=== PATIENT | female | born 1985 | race Caucasian/White ===

== ENCOUNTER 2017-01-30 18:09 | Emergency (ER) | payer OTHER ==
[~2017-01-30] VITALS: Ht 157.5 cm; Wt 76.2 kg
--- NOTE | 2017-01-30 18:27 | NUR ---
SELF PRESENT TO ED DT LOWER ABDOMINAL PAIN, CRAMPS LIKE, 10/10 X 2 DAYS. PATIENT IS AAO4. APPEARS IN NO APPARENT DISTRESS. DENIES NAUSEA AND VOMITTING. AFEBRILE. PT WITH HX OF FIBROID
[2017-01-30 18:57] LABS: APPEARANCE,URINE Slightly Cloudy (CLEAR); BILIRUBIN,URINE SMALL (NEGATIVE); BLOOD, URINE Large Ery/uL (NEGATIVE); COLOR,URINE Dark (YELLOW); KETONES,URINE 15 (NEGATIVE); LEUKOCYTE ESTERASE ,URINE Negative (NEGATIVE); NITRITE, URINE Negative (NEGATIVE); PH,URINE 5.5 (5.0-8.0); PROTEIN,URINE 100 mg/dl (NEGATIVE); UGLUCOSE Negative (NEGATIVE); UROBILINOGEN,URINE 0.2 EU/dL (0.2)
[2017-01-30 18:59] LABS: PREGNANCY TEST URINE QUAL NEGATIVE (NEGATIVE)
[2017-01-30] MEDS ORDERED: ONDANSETRON HCL/PF 4 MG/2 ML VIAL ONE (18:59)
[2017-01-30] MEDS ORDERED: KETOROLAC TROMETHAMINE INJ 30 MG/ML VIAL ONE (18:59)
[2017-01-30] MEDS ORDERED: MORPHINE SULFATE INJ 4 MG/ML DISP.SYRIN ONE (19:00)
[2017-01-30 19:06] LABS: BACTERIA,URINE Rare /HPF (None Seen); MUCUS,URINE Few /LPF (None Seen); RBC,URINE TOO NUMEROUS TO COUN /HPF (0-2); SQUAMOUS EPITHELIAL CELL,UR Moderate /HPF (None Seen); WBC,URINE 0-2 /HPF (0-3)
[2017-01-30] MEDS: ONDANSETRON HCL/PF 4 MG/2 ML VIAL IVP ONE (19:10)
[2017-01-30] MEDS: KETOROLAC TROMETHAMINE INJ 30 MG/ML VIAL IV ONE (19:10)
[2017-01-30] MEDS: MORPHINE SULFATE INJ 2 MG/ML DISP.SYRIN IV ONE (19:10)
[2017-01-30 19:15] LABS: BASOPHILS # (AUTO) 0.1 /CMM (0.0-0.2); BASOPHILS % (AUTO) 0.8 % (0.0-2.0); EOSINOPHILS # (AUTO) 0.1 /CMM (0.0-0.7); EOSINOPHILS % (AUTO) 1.1 % (0.0-6.0); HEMATOCRIT 30 % (33-45); HEMOGLOBIN 8.9 g/dL (11.5-14.8); LYMPHOCYTES # (AUTO) 1.6 /CMM (0.8-4.8); LYMPHOCYTES % (AUTO) 12.1 % (20.0-44.0); MEAN CORPUSCULAR HEMOGLOBIN 20 PG (26.0-33.0); MEAN CORPUSCULAR HGB CONC 30 g/dl (31.0-36.0); MEAN CORPUSCULAR VOLUME 67 fL (82-100); MONOCYTES # (AUTO) 0.8 /CMM (0.1-1.30); MONOCYTES % (AUTO) 6.4 % (2.0-12.0); NEUTROPHILS # (AUTO) 10.4 /CMM (1.8-8.9); NEUTROPHILS % (AUTO) 79.6 % (43.0-81.0); PLATELET COUNT (AUTO) 428 /CMM (150-450); RDW COEFFICIENT OF VARIATION 17.5 (11.5-15.0)
[2017-01-30] MEDS ORDERED: HYDROMORPHONE 1 MG/1 ML DISP.SYRIN ONE (19:24)
[2017-01-30 19:26] LABS: CALCIUM, SERUM 8.8 mg/dL (8.5-10.1); CREATININE 0.9 mg/dL (0.6-1.3); POTASSIUM 3.8 mmol/L (3.5-5.1)
--- NOTE | 2017-01-30 19:29 | NUR ---
CONTINUITY OF CARE TRANSFERRED TO NURSE ED
[2017-01-30] MEDS: HYDROMORPHONE 1 MG/1 ML DISP.SYRIN IV ONE (19:31)
[2017-01-30 19:32] LABS: ALBUMIN 3.6 g/dL (3.4-5.0); BILIRUBIN,DIRECT 0.1 mg/dL (0.0-0.2); BILIRUBIN,TOTAL 0.2 mg/dL (0.2-1.0); TOTAL PROTEIN, SERUM 7.8 g/dL (6.4-8.2)
--- NOTE | 2017-01-30 19:51 | NUR ---
PELVIC RODRICK DONE.
--- NOTE | 2017-01-30 21:15 | NUR ---
IV removed. Catheter intact and site benign. Pressure and 4x4 applied to site. No bleeding noted. Patient discharged to home in stable condition. Written and verbal after care instructions given. Patient verbalizes understanding of instruction. ambulatory with a steady gait noted. pt aaox4 no acute distress noted, resp even and unlabored. advice pt not to drive or operate any machinery due to pt was given narcotic medicine. pt friend at bedside to take pt home.
[2017-01-30 21:17] VITALS: BP 133/64
== END 2017-01-30 21:17 | disposition home or self-care (01) ==
LOC: ER 18:12
DX: D21.9 Benign neoplasm of connective and other soft tissue, unspecified (principal); N94.6 Dysmenorrhea, unspecified; D25.1 Intramural leiomyoma of uterus; N83.209 Unspecified ovarian cyst, unspecified side; N93.8 Other specified abnormal uterine and vaginal bleeding; Z88.2 Allergy status to sulfonamides
CPT/HCPCS: 36415; 76856-TC; 80048-TC; 80076-TC; 81000-TC; 84703-TC; 85025-TC; A4606; J1170; J1885; J2270; J2405; Z7610

== ENCOUNTER 2017-03-14 04:07 | Emergency (ER) | payer OTHER ==
[~2017-03-14] VITALS: Ht 157.5 cm; Wt 73.9 kg
--- NOTE | 2017-03-14 04:24 | NUR ---
PT AMBULATORY TO ER BED 6, PT C/O LOWER ABD PAIN, CHRONIC; HX OF FIBROIDS. PT AOX3 RR EVEN AND UNLABORED. NO SOB NOTED. NAD NOTED. NO NVD AT THIS TIME. PT NOT DIAPHORETIC. DR. GARCIA AT BEDSIDE FOR EVAL.
[2017-03-14 04:53] LABS: BASOPHILS # (AUTO) 0.1 /CMM (0.0-0.2); EOSINOPHILS # (AUTO) 0.3 /CMM (0.0-0.7); HEMOGLOBIN 7.3 g/dL (11.5-14.8); LYMPHOCYTES # (AUTO) 2.8 /CMM (0.8-4.8); MONOCYTES # (AUTO) 0.7 /CMM (0.1-1.30)
--- NOTE | 2017-03-14 04:53 | NUR ---
URINE COLLECTED. 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
[2017-03-14 04:56] LABS: CALCIUM, SERUM 8.6 mg/dL (8.5-10.1); CREATININE 0.8 mg/dL (0.6-1.3); POTASSIUM 3.5 mmol/L (3.5-5.1)
[2017-03-14 05:01] LABS: ALBUMIN 3.1 g/dL (3.4-5.0); BILIRUBIN,TOTAL 0.1 mg/dL (0.2-1.0); TOTAL PROTEIN, SERUM 7.5 g/dL (6.4-8.2)
[2017-03-14 05:02] LABS: BASOPHILS % (AUTO) 0.9 % (0.0-2.0); EOSINOPHILS % (AUTO) 2.9 % (0.0-6.0); HEMATOCRIT 25 % (33-45); LYMPHOCYTES % (AUTO) 31.9 % (20.0-44.0); MEAN CORPUSCULAR HEMOGLOBIN 19 PG (26.0-33.0); MEAN CORPUSCULAR HGB CONC 29 g/dl (31.0-36.0); MEAN CORPUSCULAR VOLUME 64 fL (82-100); MONOCYTES % (AUTO) 7.9 % (2.0-12.0); NEUTROPHILS % (AUTO) 56.4 % (43.0-81.0); PLATELET COUNT (AUTO) 496 /CMM (150-450); RDW COEFFICIENT OF VARIATION 18.5 (11.5-15.0); RED BLOOD CELL COUNT(AUTO) 3.89 MIL/uL (4.0-5.2); WHITE BLOOD COUNT (AUTO) 8.8 K/uL (4.3-11.0)
[2017-03-14 05:10] LABS: APPEARANCE,URINE SL CLOUDY (CLEAR); BILIRUBIN,URINE NEGATIVE (NEGATIVE); BLOOD, URINE 3+ Ery/uL (NEGATIVE); COLOR,URINE YELLOW (YELLOW); KETONES,URINE NEGATIVE (NEGATIVE); LEUKOCYTE ESTERASE ,URINE NEGATIVE (NEGATIVE); NITRITE, URINE NEGATIVE (NEGATIVE); PROTEIN,URINE 2+ mg/dl (NEGATIVE); UGLUCOSE NEGATIVE (NEGATIVE); UROBILINOGEN,URINE 0.2 EU/dL (0.2)
[2017-03-14 05:14] LABS: BACTERIA,URINE None seen /HPF (None Seen); PREGNANCY TEST URINE QUAL NEGATIVE (NEGATIVE); RBC,URINE 81-100 /HPF (0-2); SQUAMOUS EPITHELIAL CELL,UR Few /HPF (None Seen)
--- NOTE | 2017-03-14 05:16 | NUR ---
DR. GARCIA AT BEDSIDE SPEAKING TO PT REGARDING RESULTS
[2017-03-14 05:27] LABS: EOSINOPHILS % (MANUAL) 2 % (0-4); LYMPHOCYTES % (MANUAL) 29 % (16-48); MONOCYTES % (MANUAL) 7 % (0-11.0); NEUTROPHILS % (MANUAL) 62 (42-76)
--- NOTE | 2017-03-14 05:27 | NUR ---
IV removed. Catheter intact and site benign. Pressure and 4x4 applied to site. No bleeding noted. Patient discharged to home in stable condition. Written and verbal after care instructions given. Patient verbalizes understanding of instruction ambulatory with a steady gait. instructed not to drive. pt verbalize understanding.
[2017-03-14 05:28] VITALS: BP 120/56
== END 2017-03-14 05:29 | disposition home or self-care (01) ==
LOC: ER 04:09
DX: D25.9 Leiomyoma of uterus, unspecified (principal); N93.8 Other specified abnormal uterine and vaginal bleeding; D64.9 Anemia, unspecified
CPT/HCPCS: 36415; 80048-TC; 80076-TC; 81000-TC; 83690-TC; 84703-TC; 85025-TC; A4606; J2270; J2405; J7030; Z7610

== ENCOUNTER 2017-03-23 00:28 | Emergency (ER) | payer OTHER ==
[~2017-03-23] VITALS: Ht 165.1 cm; Wt 119.3 kg
--- NOTE | 2017-03-23 00:40 | NUR ---
TO BED 7 A 31 YO FEMALE BB SELF C/O NAUSEA REPORTING , "PAIN MEDICATION FOR FIBROIDS WONT STAY DOWN." AAOX4, AMBULATORY, NAD NOTED, VSS, NONDIAPHORETIC. GOWNED. COMFORT MEASURES RENDERED.
--- NOTE | 2017-03-23 03:28 | NUR ---
Patient discharged to home in stable condition. Written and verbal after care instructions given. Patient verbalizes understanding of instruction. Patient is ambulatory with steady gait, instructed not to drive. No further complaints.
[2017-03-23 03:29] VITALS: BP 119/68
== END 2017-03-23 03:29 | disposition home or self-care (01) ==
LOC: ER 00:31
DX: D25.9 Leiomyoma of uterus, unspecified (principal); R11.10 Vomiting, unspecified; Z88.2 Allergy status to sulfonamides; Z88.8 Allergy status to other drugs, medicaments and biological substances
CPT/HCPCS: 96372; 99283; A4606; J2405; Z7610

== ENCOUNTER 2017-04-28 09:32 | Emergency (ER) | payer OTHER ==
[~2017-04-28] VITALS: Ht 152.4 cm; Wt 77.6 kg
--- NOTE | 2017-04-28 09:32 | NUR ---
LOWER ABD PAIN, BILATERAL THIGH PAIN X 3 AM H/O FIBROIDS
[2017-04-28] MEDS ORDERED: HYDROCODONE/APAP 5/325MG 1 EACH TABLET PO ONE (10:00)
[2017-04-28 10:06] LABS: BILIRUBIN,URINE Negative (NEGATIVE); BLOOD, URINE Moderate Ery/uL (NEGATIVE); COLOR,URINE Yellow (YELLOW); KETONES,URINE Trace (NEGATIVE); LEUKOCYTE ESTERASE ,URINE Negative (NEGATIVE); NITRITE, URINE Negative (NEGATIVE); PH,URINE 5.5 (5.0-8.0); PROTEIN,URINE 30 mg/dl (NEGATIVE); UGLUCOSE Negative (NEGATIVE); UROBILINOGEN,URINE 0.2 EU/dL (0.2)
[2017-04-28] MEDS ORDERED: HYDROCODONE/APAP 5/325MG 1 EACH TABLET ONE (10:07)
[2017-04-28 10:08] LABS: APPEARANCE,URINE Hazy (CLEAR)
[2017-04-28] MEDS ORDERED: ONDANSETRON 4 MG TAB.RAPDIS ONE (10:09)
[2017-04-28 10:13] LABS: BACTERIA,URINE None seen /HPF (None Seen); RBC,URINE 0-3 /HPF (0-2); SQUAMOUS EPITHELIAL CELL,UR Few /HPF (None Seen)
--- NOTE | 2017-04-28 10:13 | NUR ---
VERBAL ORDER FROM DR ENEDELIA HAAS 4 MG ODT SL X1
[2017-04-28 10:20] LABS: BASOPHILS % (AUTO) 0.5 % (0.0-2.0); EOSINOPHILS # (AUTO) 0.1 /CMM (0.0-0.7); EOSINOPHILS % (AUTO) 1.3 % (0.0-6.0); HEMATOCRIT 21 % (33-45); LYMPHOCYTES # (AUTO) 2.1 /CMM (0.8-4.8); LYMPHOCYTES % (AUTO) 21.7 % (20.0-44.0); MEAN CORPUSCULAR HEMOGLOBIN 18 PG (26.0-33.0); MEAN CORPUSCULAR HGB CONC 30 g/dl (31.0-36.0); MEAN CORPUSCULAR VOLUME 61 fL (82-100); MONOCYTES # (AUTO) 0.7 /CMM (0.1-1.30); MONOCYTES % (AUTO) 6.8 % (2.0-12.0); NEUTROPHILS # (AUTO) 6.9 /CMM (1.8-8.9); NEUTROPHILS % (AUTO) 69.7 % (43.0-81.0); PLATELET COUNT (AUTO) 445 /CMM (150-450); RDW COEFFICIENT OF VARIATION 17.2 (11.5-15.0); RED BLOOD CELL COUNT(AUTO) 3.41 MIL/uL (4.0-5.2); WHITE BLOOD COUNT (AUTO) 9.8 K/uL (4.3-11.0)
[2017-04-28 10:23] LABS: HEMOGLOBIN 6.3 g/dL (11.5-14.8)
[2017-04-28 10:26] LABS: CALCIUM, SERUM 8.8 mg/dL (8.5-10.1); CREATININE 0.7 mg/dL (0.6-1.3); POTASSIUM 3.3 mmol/L (3.5-5.1)
--- NOTE | 2017-04-28 11:09 | NUR ---
Patient discharged to home in stable condition. Written and verbal after care instructions given. Patient verbalizes understanding of instruction.
[2017-04-28 11:12] VITALS: BP 107/75
[2017-04-28 12:17] LABS: EOSINOPHILS % (MANUAL) 1 % (0-4); LYMPHOCYTES % (MANUAL) 12 % (16-48); MONOCYTES % (MANUAL) 3 % (0-11.0); NEUTROPHILS % (MANUAL) 84 (42-76)
== END 2017-04-28 11:13 | disposition home or self-care (01) ==
LOC: ER 09:33
DX: D64.9 Anemia, unspecified (principal); D25.9 Leiomyoma of uterus, unspecified; Z88.2 Allergy status to sulfonamides; Z88.8 Allergy status to other drugs, medicaments and biological substances
CPT/HCPCS: 36415; 80048-TC; 81000-TC; 84703-TC; 85025-TC; A4606; Q0162; Z7610

== ENCOUNTER 2017-10-12 11:10 | Emergency (ER) | payer OTHER ==
[~2017-10-12] VITALS: Ht 157.5 cm; Wt 72.6 kg
--- NOTE | 2017-10-12 11:34 | NUR ---
LOWER ABDOMINAL PAIN, ACHING, RADIATING DOWN B L E X 6 DAYS
[2017-10-12] MEDS ORDERED: HYDROMORPHONE INJ 2 MG/ML DISP.SYRIN ONE (11:49)
[2017-10-12] MEDS ORDERED: ONDANSETRON HCL/PF 4 MG/2 ML VIAL ONE (11:50)
[2017-10-12] MEDS ORDERED: IV NS 0.9% 1,000 ML BAG IV ONE (12:00)
[2017-10-12] MEDS ORDERED: ONDANSETRON HCL/PF 4 MG/2 ML VIAL IVP ONE (12:00)
[2017-10-12] MEDS ORDERED: HYDROMORPHONE INJ 2 MG/ML DISP.SYRIN IV ONE (12:00)
[2017-10-12 12:04] LABS: CALCIUM, SERUM 8.6 mg/dL (8.5-10.1); CREATININE 0.8 mg/dL (0.6-1.3)
[2017-10-12 12:05] LABS: BASOPHILS # (AUTO) 0.1 /CMM (0.0-0.2); BASOPHILS % (AUTO) 1.1 % (0.0-2.0); EOSINOPHILS % (AUTO) 3.5 % (0.0-6.0); HEMATOCRIT 24 % (33-45); HEMOGLOBIN 7.7 g/dL (11.5-14.8); LYMPHOCYTES # (AUTO) 1.9 /CMM (0.8-4.8); LYMPHOCYTES % (AUTO) 28.7 % (20.0-44.0); MEAN CORPUSCULAR HGB CONC 32 g/dl (31.0-36.0); MEAN CORPUSCULAR VOLUME 62 fL (82-100); MONOCYTES # (AUTO) 0.5 /CMM (0.1-1.30); MONOCYTES % (AUTO) 7.1 % (2.0-12.0); NEUTROPHILS # (AUTO) 3.9 /CMM (1.8-8.9); NEUTROPHILS % (AUTO) 59.6 % (43.0-81.0); PLATELET COUNT (AUTO) 352 /CMM (150-450); RDW COEFFICIENT OF VARIATION 18.9 (11.5-15.0); RED BLOOD CELL COUNT(AUTO) 3.89 MIL/uL (4.0-5.2); WHITE BLOOD COUNT (AUTO) 6.6 K/uL (4.3-11.0)
--- NOTE | 2017-10-12 12:08 | NUR ---
LEANNA #20 IV ACCESS. BLOOD SAMPLE COLLECTED SENT TO LAB
--- NOTE | 2017-10-12 12:59 | NUR ---
IV removed. Catheter intact and site benign. Pressure and 4x4 applied to site. No bleeding noted.
--- NOTE | 2017-10-12 13:00 | NUR ---
Patient discharged to home in stable condition. Written and verbal after care instructions given. Patient verbalizes understanding of instruction.
[2017-10-12 13:01] VITALS: BP 140/82
== END 2017-10-12 13:02 | disposition home or self-care (01) ==
LOC: ER 11:12
DX: R10.30 Lower abdominal pain, unspecified (principal); D25.9 Leiomyoma of uterus, unspecified; D64.9 Anemia, unspecified; Z88.2 Allergy status to sulfonamides; Z88.8 Allergy status to other drugs, medicaments and biological substances
CPT/HCPCS: 36415; 80048-TC; 84703-TC; 85025-TC; A4606; J1170; J2405; J7030; Z7610

== ENCOUNTER 2017-11-08 14:11 | Emergency (ER) | payer OTHER ==
[~2017-11-08] VITALS: Ht 157.5 cm; Wt 71.7 kg
[2017-11-08] MEDS ORDERED: KETOROLAC TROMETHAMINE INJ 30 MG/ML VIAL ONE (15:39)
--- NOTE | 2017-11-08 15:47 | NUR ---
PT CAME IN WITH C/O LEG PAIN, LOWER BACK AND ABDOMINAL PAIN- NO RELIEF FROM OTC MEDS. SEEN BY MD FOR EVAL. VSS. SAFETY AND COMFORT MEASURES PROVIDED. WILL MONITOR.
[2017-11-08 15:53] LABS: BASOPHILS # (AUTO) 0.2 /CMM (0.0-0.2); HEMATOCRIT 24 % (33-45); HEMOGLOBIN 7.1 g/dL (11.5-14.8); LYMPHOCYTES # (AUTO) 1.9 /CMM (0.8-4.8); LYMPHOCYTES % (AUTO) 24.3 % (20.0-44.0); MEAN CORPUSCULAR HGB CONC 30 g/dl (31.0-36.0); MEAN CORPUSCULAR VOLUME 63 fL (82-100); MONOCYTES # (AUTO) 0.6 /CMM (0.1-1.30); MONOCYTES % (AUTO) 7.4 % (2.0-12.0); NEUTROPHILS # (AUTO) 4.8 /CMM (1.8-8.9); NEUTROPHILS % (AUTO) 62.3 % (43.0-81.0); PLATELET COUNT (AUTO) 303 /CMM (150-450); RDW COEFFICIENT OF VARIATION 19.8 (11.5-15.0); RED BLOOD CELL COUNT(AUTO) 3.77 MIL/uL (4.0-5.2); WHITE BLOOD COUNT (AUTO) 7.8 K/uL (4.3-11.0)
[2017-11-08] MEDS ORDERED: KETOROLAC TROMETHAMINE INJ 30 MG/ML VIAL IV ONE (16:00)
[2017-11-08] MEDS ORDERED: IV NS 0.9% 1,000 ML BAG IV ONE (16:00)
[2017-11-08 16:06] LABS: CALCIUM, SERUM 8.4 mg/dL (8.5-10.1); CREATININE 0.8 mg/dL (0.6-1.3); POTASSIUM 3.6 mmol/L (3.5-5.1)
[2017-11-08 16:54] VITALS: BP 120/57
--- NOTE | 2017-11-08 17:19 | NUR ---
IV removed. Catheter intact and site benign. Pressure and 4x4 applied to site. No bleeding noted.
--- NOTE | 2017-11-08 17:19 | NUR ---
Patient discharged to home in stable condition. Written and verbal after care instructions given. Patient verbalizes understanding of instruction.
== END 2017-11-08 17:19 | disposition home or self-care (01) ==
LOC: ER 14:13
DX: R10.30 Lower abdominal pain, unspecified (principal); D25.9 Leiomyoma of uterus, unspecified; D64.9 Anemia, unspecified; Z88.2 Allergy status to sulfonamides; Z88.8 Allergy status to other drugs, medicaments and biological substances
CPT/HCPCS: 36415; 80048; 84703; 85025; 96361; 96374; 99284; A4606; J1885; J7030; Z7610

== ENCOUNTER 2019-01-30 16:35 | Emergency (ER) | payer OTHER ==
[~2019-01-30] VITALS: Ht 157.5 cm; Wt 84.4 kg
[2019-01-30 16:48] VITALS: BP 121/72
[2019-01-30] MEDS ORDERED: LIDOCAINE 1%-EPI 1:100,000 20 ML VIAL ONE (17:11)
[2019-01-30] MEDS ORDERED: ACETAMINOPHEN ES 500 MG TABLET ONE (17:11)
--- NOTE | 2019-01-30 17:21 | NUR ---
DINA Maravilla at bedside for I&D
[2019-01-30] MEDS ORDERED: LIDOCAINE 1%-EPI 1:100,000 20 ML VIAL TP ONE (17:30)
[2019-01-30] MEDS ORDERED: ACETAMINOPHEN ES 500 MG TABLET PO ONE (17:30)
== END 2019-01-30 17:54 | disposition home or self-care (01) ==
LOC: ER 16:41
DX: L02.212 Cutaneous abscess of back [any part, except buttock and flank] (principal); D64.9 Anemia, unspecified; Z88.2 Allergy status to sulfonamides; Z88.1 Allergy status to other antibiotic agents
CPT/HCPCS: 10060; 99283; A6403; J3490

== ENCOUNTER 2019-02-11 14:39 | Emergency (ER) | payer OTHER ==
[~2019-02-11] VITALS: Ht 157.5 cm; Wt 86.6 kg
[2019-02-11 14:53] VITALS: BP 118/68
[2019-02-11] MEDS ORDERED: LIDOCAINE 1%-EPI 1:100,000 20 ML VIAL ONE (15:08)
[2019-02-11] MEDS ORDERED: LIDOCAINE 1%-EPI 1:100,000 50 ML VIAL IJ ONE (15:30)
--- NOTE | 2019-02-11 15:32 | NUR ---
I/D done by Dr Reyna. Dressing applied Patient discharged to home in stable condition. Written and verbal after care instructions given. Patient verbalizes understanding of instruction.
== END 2019-02-11 15:34 | disposition home or self-care (01) ==
LOC: ER 14:41
DX: L02.212 Cutaneous abscess of back [any part, except buttock and flank] (principal); Z88.2 Allergy status to sulfonamides; Z88.1 Allergy status to other antibiotic agents
CPT/HCPCS: 10060; 99283; A6253; A6403 ×3; A6407; J3490 ×2

== ENCOUNTER 2019-04-02 10:41 | Emergency (ER) | payer OTHER ==
[~2019-04-02] VITALS: Ht 152.4 cm; Wt 79.8 kg
--- NOTE | 2019-04-02 11:08 | NUR ---
PT BIB SELF C/O NAUSEA AND VOMITING, GENERALIZED ACHES SINCE LAST NIGHT, PT IS AAOX4, NOT IN RESPIRATORY DISTRESS, V/S STABLE, KEPT RESTED AND COMFORTABLE, WILL CONTINUE TO MONITOR.
--- NOTE | 2019-04-02 11:23 | NUR ---
PT SEEN AND EXAMINED BY .
[2019-04-02] MEDS ORDERED: ONDANSETRON HCL/PF 4 MG/2 ML VIAL ONE (11:39)
--- NOTE | 2019-04-02 11:50 | NUR ---
IV LINE ESTABLISHED, BLOOD DRAWN AND SENT TO LAB.
[2019-04-02] MEDS: IV NS 0.9% 1,000 ML BAG IV ONE (11:55)
[2019-04-02] MEDS: ONDANSETRON HCL/PF 4 MG/2 ML VIAL IVP ONE (11:55)
[2019-04-02 11:56] LABS: BASOPHILS % (AUTO) 0.4 % (0.0-2.0); EOSINOPHILS % (AUTO) 0.5 % (0.0-6.0); HEMATOCRIT 42 % (33-45); HEMOGLOBIN 13.8 g/dL (11.5-14.8); LYMPHOCYTES # (AUTO) 1.1 /CMM (0.8-4.8); LYMPHOCYTES % (AUTO) 11.2 % (20.0-44.0); MEAN CORPUSCULAR HGB CONC 33 g/dl (31.0-36.0); MEAN CORPUSCULAR VOLUME 85 fL (82-100); MONOCYTES # (AUTO) 0.5 /CMM (0.1-1.30); NEUTROPHILS % (AUTO) 82.9 % (43.0-81.0); PLATELET COUNT (AUTO) 324 /CMM (150-450); RED BLOOD CELL COUNT(AUTO) 4.89 MIL/uL (4.0-5.2); WHITE BLOOD COUNT (AUTO) 9.6 K/uL (4.3-11.0)
[2019-04-02 12:02] LABS: CALCIUM, SERUM 8.7 mg/dL (8.5-10.1); CREATININE 0.8 mg/dL (0.6-1.3); POTASSIUM 5.1 mmol/L (3.5-5.1)
[2019-04-02 12:08] LABS: ALBUMIN 3.3 g/dL (3.4-5.0); BILIRUBIN,TOTAL 0.6 mg/dL (0.2-1.0); TOTAL PROTEIN, SERUM 8.3 g/dL (6.4-8.2)
--- NOTE | 2019-04-02 13:13 | NUR ---
IV removed. Catheter intact and site benign. Pressure and 4x4 applied to site. No bleeding noted. Patient discharged to home in stable condition. Written and verbal after care instructions given. Patient verbalizes understanding of instruction.
[2019-04-02 13:14] VITALS: BP 122/82
== END 2019-04-02 13:14 | disposition home or self-care (01) ==
LOC: ER 10:41
DX: R11.2 Nausea with vomiting, unspecified (principal); D64.9 Anemia, unspecified; Z88.2 Allergy status to sulfonamides; Z88.1 Allergy status to other antibiotic agents
CPT/HCPCS: 36415; 80048; 80076; 83690; 85025; 96361; 96374; 99283; J2405; J7030

== ENCOUNTER 2022-10-06 08:51 | Inpatient (IN) | payer OTHER ==
[~2022-10-06] VITALS: Ht 157.5 cm; Wt 86.6 kg
--- NOTE | 2022-10-06 09:07 | NUR ---
URINE SAMPLE OBTAINED AND SENT TO LAB.
--- NOTE | 2022-10-06 09:08 | NUR ---
AT [facility] FOR BJ
[2022-10-06] MEDS ORDERED: IV NS 0.9% 1,000 ML BAG IV ONE ×2 (09:30→11:30)
--- NOTE | 2022-10-06 09:30 | NUR ---
IV ACCESS ESTABLISHED, 20G RIGHT AC. BLOOD DRAWN AND SENT TO LAB.
[2022-10-06] MEDS ORDERED: METOCLOPRAMIDE HCL 10 MG/2 ML VIAL IV ONE (10:00)
[2022-10-06 10:02] LABS: BASOPHILS % (AUTO) 0.2 % (0.0-2.0); EOSINOPHILS % (AUTO) 0.1 % (0.0-6.0); HEMATOCRIT 37 % (33-45); LYMPHOCYTES # (AUTO) 0.7 K/uL (0.8-4.8); LYMPHOCYTES % (AUTO) 2.8 % (20.0-44.0); MEAN CORPUSCULAR HGB CONC 33 g/dl (31.0-36.0); MEAN CORPUSCULAR VOLUME 87 fL (82-100); MONOCYTES # (AUTO) 1.4 K/uL (0.1-1.30); MONOCYTES % (AUTO) 5.6 % (2.0-12.0); NEUTROPHILS # (AUTO) 22.3 K/uL (1.8-8.9); NEUTROPHILS % (AUTO) 91.3 % (43.0-81.0); PLATELET COUNT (AUTO) 261 K/uL (150-450); RED BLOOD CELL COUNT(AUTO) 4.25 MIL/uL (4.0-5.2); WHITE BLOOD COUNT (AUTO) 24.5 K/uL (4.3-11.0)
[2022-10-06 10:06] LABS: BILIRUBIN,URINE NEGATIVE (NEGATIVE); COLOR,URINE YELLOW (YELLOW); LEUKOCYTE ESTERASE ,URINE 1+ (NEGATIVE); NITRITE, URINE NEGATIVE (NEGATIVE); PH,URINE 8.5 (5.0-8.0); PROTEIN,URINE NEGATIVE (NEGATIVE); UGLUCOSE NEGATIVE (NEGATIVE); UROBILINOGEN,URINE 0.2 EU/dL (0.2)
[2022-10-06] MEDS ORDERED: METOCLOPRAMIDE HCL 10 MG/2 ML VIAL ONE (10:09)
[2022-10-06 10:17] LABS: BACTERIA,URINE Few /HPF (None Seen); SQUAMOUS EPITHELIAL CELL,UR Few /HPF (None Seen)
[2022-10-06 10:34] LABS: ALBUMIN 3.3 g/dL (3.4-5.0); BILIRUBIN,DIRECT 0.1 mg/dL (0.0-0.2); BILIRUBIN,TOTAL 0.6 mg/dL (0.2-1.0); CREATININE 0.9 mg/dL (0.6-1.3); TOTAL PROTEIN, SERUM 7.1 g/dL (6.4-8.2)
[2022-10-06 10:47] LABS: POTASSIUM 2.8 mmol/L (3.5-5.1)
[2022-10-06] MEDS ORDERED: POTASSIUM CHLORIDE 20 MEQ TAB.PRT.SR PO ONE ×2 (11:00→11:01)
[2022-10-06] MEDS ORDERED: POTASSIUM CL. PREMIX PERIPHER. 100 ML ONE (11:06)
--- NOTE | 2022-10-06 11:07 | NUR ---
U/S TECH AT BEDSIDE
--- NOTE | 2022-10-06 11:20 | NUR ---
LACTIC ACID 2.9. MADE AWARE
[2022-10-06] MEDS ORDERED: CEFTRIAXONE 1GM BAG (ER ONLY) 1 GM/50 ML PIGGYBACK IV ONE (11:30)
[2022-10-06] MEDS: POTASSIUM CL. PREMIX PERIPHER. 50 ML IV SCH ×2 (11:30→13:10)
--- NOTE | 2022-10-06 11:31 | NUR ---
MOVE SHEET SUBMITTED.
[2022-10-06] MEDS ORDERED: CEFTRIAXONE 1 G in IV D5W 50 ML IV ONE (12:00)
[2022-10-06] MEDS ORDERED: ADAL40PE SQ (12:22)
--- NOTE | 2022-10-06 13:12 | NUR ---
[facility] CALLED, SODA WORKER PAGED.
[2022-10-06] MEDS ORDERED: ZOLPIDEM TARTRATE 5 MG TABLET PO PRN (14:30)
[2022-10-06] MEDS ORDERED: MAG HYDROX/AL HYDROX/SIMETH 30 ML UDC PO PRN (14:30)
[2022-10-06] MEDS ORDERED: Z GUARD REMEDY 4 OZ OINT TP PRN (14:30)
[2022-10-06] MEDS ORDERED: CEFTRIAXONE 1 G in IV D5W 50 ML IV SCH (14:30)
[2022-10-06] MEDS ORDERED: MAGNESIUM HYDROXIDE 30 ML UDC PO PRN (14:30)
--- NOTE | 2022-10-06 15:33 | NUR ---
ROOM 310-2
--- NOTE | 2022-10-06 15:46 | NUR ---
REPORT GIVEN TO TATI GAMEZ. AWAITING TRANSFER TO FLOOR.
[2022-10-06 16:32] VITALS: BP 124/50
[2022-10-06] MEDS: IV NS 0.9% 1,000 ML IV PRN (16:56)
[2022-10-06] MEDS: ONDANSETRON HCL/PF 4 MG/2 ML VIAL IVP PRN (16:56)
[2022-10-06] MEDS: ACETAMINOPHEN 325 MG TABLET PO PRN (16:56)
--- NOTE | 2022-10-06 17:00 | NUR ---
RN ADMITTING NOTES RECEIVED PATIENT AWAKE IN [facility], ABLE TO AMBULATE TO THE BED. A/Ox4, ABLE TO MAKE NEEDS KNOWN. ON ROOM AIR, NO S/S OF RESPIRATORY DISTRESS. PATIENT IV ACCESS RAC #20G AND R HAND #20G, INTACT AND PATENT. PATIENT V/S TAKEN AND STABLE. FULL BODY ASSESSMENT COMPLETED: CARDIAC WNL, RESPIRATORY WNL, GI/ CONTINENT HAS BATHROOM PRIVILEGE, SKIN INTACT. NO C/O OF PAIN OR DISCOMFORT. SAFETY MEASURES IN PLACE: BED LOCKED AND IN LOWEST POSITION, HOB ELEVATED, CALL LIGHT WITHIN REACH, SIDE RAILS UPx2. WILL CONTINUE TO MONITOR.
--- NOTE | 2022-10-06 17:20 | NUR ---
RN NOTES PATIENT COMPLAINED OF NAUSEA AND CRAMPS, PRN TYLENOL AND ZOFRAN ADMINISTERED.
--- NOTE | 2022-10-06 18:40 | NUR ---
MS RN CLOSING NOTES PATIENT IN ROOM RESTING IN BED, A/Ox4, STABLE ON ROOM AIR, NO S/S OF RESPIRATORY DISTRESS. PATIENT IV ACCESS RAC #20G S/L AND R HAND #20 RUNNING NS @100 ML/HR. AMBULATORY, BRP. SKIN INTACT. NO C/O OF PAIN OR DISCOMFORT. SAFETY MEASURES MAINTAINED: BED LOCKED AND IN LOWEST POSITION, HOB ELEVATED, CALL LIGHT WITHIN REACH, SIDE RAILS UPx2. WILL ENDORSE TO NEXT SHIFT ANY NUBIA.
--- NOTE | 2022-10-06 19:15 | NUR ---
MS RN OPENING NOTE PATIENT IS RESTING IN BED, SHE IS AWAKE, ALERT AND ORIENTED; A/O x 4. SHE IS ON RA, TOLERATED WELL. NO S/S OF DISTRESS OR SOB. PT DENIES OF HAVING PAIN AT THIS MOMENT. IV ACCESS ONE IS AT HER R AC #20G S/L AND ANOTHER ONE IS AT HER R HAND #20G, RUNNING NS @100 ML/HR. SAFETY MEASURES MAINTAINED: BED LOCKED AND IN LOWEST POSITION, HOB ELEVATED, CALL LIGHT WITHIN REACH, SIDE RAILS UP x 2. WILL CONTINUE MONITORING THE PT AND PROVIDE THE CARE PT NEEDS.
[2022-10-06 20:00] VITALS: BP 119/60
[2022-10-07] MEDS: ONDANSETRON HCL/PF 4 MG/2 ML VIAL IVP PRN (01:48)
[2022-10-07] MEDS: IV NS 0.9% 1,000 ML IV PRN (01:49)
[2022-10-07] MEDS: ACETAMINOPHEN 325 MG TABLET PO PRN (03:01)
--- NOTE | 2022-10-07 03:06 | NUR ---
MS RN NOTE PT STATES SHE IS HAVING PAIN AT HER LEGS, 4 OUT OF 10 AND REQUESTED FOR TYLENOL, PRN ORAL MEDICATION, TYLENOL 650 MG, ADMINISTERED TO THE PT.
[2022-10-07 06:18] LABS: BASOPHILS % (AUTO) 0.3 % (0.0-2.0); EOSINOPHILS % (AUTO) 0.1 % (0.0-6.0); HEMATOCRIT 36 % (33-45); HEMOGLOBIN 11.5 g/dL (11.5-14.8); LYMPHOCYTES # (AUTO) 0.9 K/uL (0.8-4.8); LYMPHOCYTES % (AUTO) 4.7 % (20.0-44.0); MEAN CORPUSCULAR HGB CONC 32 g/dl (31.0-36.0); MEAN CORPUSCULAR VOLUME 88 fL (82-100); MONOCYTES # (AUTO) 1.4 K/uL (0.1-1.30); NEUTROPHILS # (AUTO) 15.7 K/uL (1.8-8.9); NEUTROPHILS % (AUTO) 86.9 % (43.0-81.0); PLATELET COUNT (AUTO) 233 K/uL (150-450); RED BLOOD CELL COUNT(AUTO) 4.11 MIL/uL (4.0-5.2)
--- NOTE | 2022-10-07 06:43 | NUR ---
MS RN OPENING NOTE PATIENT IS RESTING IN BED, SHE IS AWAKE, ALERT AND ORIENTED; A/O x 4. SHE IS ON RA, TOLERATED WELL. NO S/S OF DISTRESS OR SOB. PT DENIES OF HAVING PAIN AT THIS MOMENT. IV ACCESS ONE IS AT HER R AC #20G S/L AND ANOTHER ONE IS AT HER R HAND #20G, RUNNING NS @100 ML/HR. PT IS ABLE TO MAKE HER NEEDS KNOWN. SAFETY MEASURES MAINTAINED: BED LOCKED AND IN LOWEST POSITION, HOB ELEVATED, CALL LIGHT WITHIN REACH, SIDE RAILS UP x 2. WILL ENDORSE NEXT SHIFT NURSE FOR CONTINUING PT CARE.
[2022-10-07 07:09] LABS: CALCIUM, SERUM 8.4 mg/dL (8.5-10.1); MAGNESIUM 1.6 mg/dL (1.8-2.4); PHOSPHORUS 3.2 mg/dL (2.5-4.9); POTASSIUM 2.9 mmol/L (3.5-5.1)
--- NOTE | 2022-10-07 07:50 | NUR ---
MS RN OPENING NOTE PATIENT IS RESTING IN BED, SHE IS AWAKE, ALERT AND ORIENTED; A/O x 4. SHE IS ON RA, TOLERATED WELL. NO S/S OF DISTRESS OR SOB. PT DENIES OF HAVING PAIN AT THIS MOMENT. IV ACCESS IS AT R AC #20G S/L AND ANOTHER ONE IS AT HER R HAND #20G, INFUSING NS @100 ML/HR. PT IS ABLE TO MAKE HER NEEDS KNOWN. SAFETY MEASURES MAINTAINED: BED LOCKED AND IN LOWEST POSITION, HOB ELEVATED, CALL LIGHT WITHIN REACH, SIDE RAILS UP x 2. WILL CARE FOR AND MONITOR PER HOSPITALIST'S POC..
[2022-10-07 08:00] VITALS: BP 118/74
[2022-10-07] MEDS ORDERED: PANTOPRAZOLE 40 MG VIAL IV SCH (09:00)
[2022-10-07] MEDS: Magnesium 1GM/D5W 100ML PREMIX 100 ML IV SCH ×2 (09:52→10:46)
[2022-10-07] MEDS ORDERED: POTASSIUM CHLORIDE 20 MEQ POWDER PACKET PO ONE (10:00)
--- NOTE | 2022-10-07 12:45 | NUR ---
MS RN DEPARTURE AMA NOTE Patient was advised that she stiill needs urgent acute medical health care in hospital both by the nurse and Lashell James DNP, hospitalist. However, patient refused to listened to the reasons for the need to stay in the hospital , insisting that she must go home to take care of her dog. Patient signed the Against Medical Advice document, tolerated removal of both her PIV catheters fully intact without complications, got dressed, and departed the hospital on foot walking steady gait to private car bound for her home at 12:40 hours.
[2022-10-14] MEDS ORDERED: ADALIMUMAB 40 MG SQ SCH (09:00)
== END 2022-10-07 12:45 | disposition left against medical advice (07) | DRG 720 ==
LOC: ER 08:58 → MED 16:01
PROVIDERS: ADMIT Nurse Practitioner Acute Care; ATTEND Nurse Practitioner Acute Care
DX: A41.9 Sepsis, unspecified organism (principal); E87.20 Acidosis, unspecified; E44.1 Mild protein-calorie malnutrition; E88.09 Other disorders of plasma-protein metabolism, not elsewhere classified; D25.9 Leiomyoma of uterus, unspecified; K52.9 Noninfective gastroenteritis and colitis, unspecified; N39.0 Urinary tract infection, site not specified; Z20.822 Contact with and (suspected) exposure to COVID-19; Z88.1 Allergy status to other antibiotic agents; Z88.2 Allergy status to sulfonamides; B96.89 Other specified bacterial agents as the cause of diseases classified elsewhere; E87.6 Hypokalemia; F12.90 Cannabis use, unspecified, uncomplicated; E66.9 Obesity, unspecified; Z68.34 Body mass index [BMI] 34.0-34.9, adult; D64.9 Anemia, unspecified; Z87.2 Personal history of diseases of the skin and subcutaneous tissue
CPT/HCPCS: 36415; 76705-TC; 76856-TC; 80048-TC; 80076-TC; 81001; 83605-TC; 83690-TC; 83735-TC; 84100-TC; 84702-TC; 84703-TC; 85025-TC; 86850-TC; 87040-TC; 87081-TC; 87086-TC; A4223; C9113; C9803; G0378; J0696; J2405; J2765; J3475; J3480; J7030; J7040; J7060